=== PATIENT | female | born 1980 | race Caucasian/White ===

== ENCOUNTER → 2017-06-28 | Outpatient (CLI) | payer MEDICARE, OTHER | END | disposition home or self-care (01) | LOC: PCVCIMAG 15:25 | DX: I87.2 Venous insufficiency (chronic) (peripheral) (principal); I83.813 Varicose veins of bilateral lower extremities with pain; F43.10 Post-traumatic stress disorder, unspecified; F41.9 Anxiety disorder, unspecified; M19.90 Unspecified osteoarthritis, unspecified site | CPT/HCPCS: 93970; G0463 ==

== ENCOUNTER → 2018-12-18 | Outpatient (CLI) | payer MEDICARE, OTHER ==
--- NOTE | 2018-12-18 13:13 | PCVCIMAG ---
EXAM: VENOUS DUPLEX LEFT LEG INDICATION: Leg pain and swelling. FINDINGS: Left leg: No thrombus in the common femoral, main femoral, or popliteal veins. These veins are compressible with phasic flow. Calf veins are unremarkable where seen. IMPRESSION: No evidence of deep venous thrombosis in the left lower extremity as detailed above. LOC:[id number]
== END | disposition home or self-care (01) ==
LOC: PCVCIMAG 10:18
PROVIDERS: ATTEND Nuclear Medicine Nuclear Cardiology
DX: I87.2 Venous insufficiency (chronic) (peripheral) (principal)
CPT/HCPCS: 93971